=== PATIENT | female | born 1930 | race Asian ===

== ENCOUNTER 2018-07-19 02:15 | Inpatient (IN) | payer MEDICARE, OTHER ==
[~2018-07-19] VITALS: Ht 154.9 cm; Wt 40.8 kg
--- NOTE | 2018-07-19 02:30 | NUR ---
ED Nurse Note: YOSVANY ESCOBEDO C/O Occipital head injury s/p rolling out of bed at [facility]. AO3. NAD. PRESENTS WITH LACERATION AND HEMATOMA TO LEFT POSTERIOR HEAD AND RIGHT FOREARM SKIN TEAR.
[2018-07-19] MEDS ORDERED: CATAPRES0.1 MG ORAL (03:19)
[2018-07-19] MEDS ORDERED: MELATONIN3 M2 PO (03:19)
[2018-07-19] MEDS ORDERED: prostat sf (03:19)
[2018-07-19] MEDS ORDERED: robitussin dm (03:19)
[2018-07-19] MEDS ORDERED: K-TAB ER20 MEQ PO (03:19)
[2018-07-19] MEDS ORDERED: DUCOLAX RC (03:19)
[2018-07-19] MEDS ORDERED: FERROUS SULFAT325 MG ORAL (03:19)
[2018-07-19] MEDS ORDERED: MILK OF MA2400 MG/10 ORAL (03:19)
[2018-07-19] MEDS ORDERED: ALBUTEROL2.5 MG/3 M INH (03:19)
[2018-07-19] MEDS ORDERED: maalox PO (03:19)
[2018-07-19] MEDS ORDERED: NITROSTAT0.4 M1 SL (03:19)
[2018-07-19] MEDS ORDERED: TYLENOL325 MG ORAL (03:19)
[2018-07-19] MEDS ORDERED: AMBIEN5 MG ORAL (03:19)
[2018-07-19] MEDS ORDERED: NORCO 5-325 TA1 EACH ORAL (03:19)
[2018-07-19 03:30] VITALS: BP 143/109
--- NOTE | 2018-07-19 03:40 | NUR ---
ED Nurse Note:PT DOWN TO CT
--- NOTE | 2018-07-19 04:16 | NUR ---
ED Nurse Note: PT BACK FROM CT
--- NOTE | 2018-07-19 04:20 | NUR ---
ED Nurse Note: BLOOD COLLECTED; SENT DOWN TO LAB. UNABLE TO ESTABLISH IV ACCESS X4. WILL ATTEMPT AT A LATER TIME; [employer] FACILITY OPERATOR MADE AWARE.
--- NOTE | 2018-07-19 04:50 | NUR ---
ED Nurse Note: IV ACCESS ESTABLISHED.
[2018-07-19] MEDS ORDERED: Metoprolol 5mg/5ml Inj ONE (05:00)
[2018-07-19] MEDS ORDERED: Metoprolol 5mg/5ml Inj IVP ONE (05:00)
--- NOTE | 2018-07-19 05:00 | NUR ---
ED Nurse Note: MRSA VRE CRE SWABS COLLECTED; SENT DOWN TO LAB. WOUND CARE PHOTOS UPLOADED.
[2018-07-19 05:06] LABS: BASOPHILS % (AUTO) 0.8 % (0.0-2.0); EOSINOPHILS % (AUTO) 1.7 % (0.0-3.0); HEMOGLOBIN 10.7 G/DL (12.0-16.0); LYMPHOCYTES % (AUTO) 9.8 % (20.0-45.0); MEAN CORPUSCULAR VOLUME 98 FL (80-99); MONOCYTES % (AUTO) 4.4 % (1.0-10.0); NEUTROPHILS % (AUTO) 83.3 % (45.0-75.0); PLATELET COUNT 215 K/UL (150-450); RED BLOOD COUNT 3.46 M/UL (4.20-5.40); RED CELL DISTRIBUTION WIDTH 18.7 % (11.6-14.8); WHITE BLOOD COUNT 7.2 K/UL (4.8-10.8)
[2018-07-19 05:10] LABS: ANION GAP 7 mmol/L (5-15); BLOOD UREA NITROGEN 9 mg/dL (7-18); CALCIUM 8.4 MG/DL (8.5-10.1); CARBON DIOXIDE 24 MMOL/L (21-32); CHLORIDE 100 MMOL/L (98-107); CREATININE 0.7 MG/DL (0.55-1.30); POTASSIUM 4.7 MMOL/L (3.5-5.1); SODIUM 131 MMOL/L (136-145)
[2018-07-19 05:24] LABS: ALANINE AMINOTRANSFERASE 70 U/L (12-78); ALBUMIN 2.6 G/DL (3.4-5.0); ALBUMIN/GLOBULIN RATIO 0.6 (1.0-2.7); ALKALINE PHOSPHATASE 91 U/L (46-116); ASPARTATE AMINO TRANSFERASE 161 U/L (15-37); BILIRUBIN,TOTAL 0.6 MG/DL (0.2-1.0); CKMB 1.2 NG/ML (0.0-3.6); CREATINE KINASE 38 U/L (26-308)
--- NOTE | 2018-07-19 05:33 | NUR ---
ED Nurse Note: CALLED FOR REPORT. RECEIVING RN ON BREAK; WILL CALL BACK IN 15 MIN
--- NOTE | 2018-07-19 05:39 | Emergency Room Report ---
History of Present Illness General Chief Complaint: Multiple Trauma/Fall Source: Medical Record Present Illness HPI 79-year-old female presents ED for evaluation. Patient brought in from [facility] facility status post head injury. Fell from her bed tonight. Has swelling to her posterior scalp. No LOC. Per triage patient is tachycardic. Reported fevers or chills. No other aggravating or relieving factors. No other associated symptoms Allergies: Coded Allergies: No Known Allergies (Unverified , 07/19/18) Patient History Past Medical History: DM, HTN Past Surgical History: none Pertinent Family History: none Social History: Denies: smoking, alcohol use, drug use Now: No Immunizations: UTD Reviewed Nursing Documentation: PMH: Agreed; PSxH: Agreed Nursing Documentation-PMH Hx Hypertension: Yes Hx Diabetes: Yes Review of Systems All Other Systems: limited Physical Exam Vital Signs Date Time Temp Pulse Resp B/P (MAP) Pulse Ox O2 Delivery O2 Flow Rate FiO2 07/19/18 02:14 Room Air 07/19/18 02:30 126 22 07/19/18 03:30 98.7 143/109 97 General Appearance: cachetic, other - nonverbal Head: other - posterior scalp swelling. no laceration.abrasion noted Eyes: bilateral eye normal inspection, bilateral eye PERRL, bilateral eye EOMI ENT: normal ENT inspection Neck: normal inspection Respiratory: chest non-tender, lungs clear, normal breath sounds, speaking full sentences Cardiovascular #1: regular rate, rhythm, no edema Gastrointestinal: normal inspection Rectal: deferred Genitourinary: no CVA tenderness Musculoskeletal: normal inspection Neurologic: other - nonverbal Psychiatric: other - nonverbal Skin: normal inspection Lymphatic: normal inspection Medical Decision Making Diagnostic Impression: Primary Impression: Atrial fibrillation with RVR Additional Impression: Head injury Qualified Codes: S09.90XA - Unspecified injury of head, initial encounter ER Course Hospital Course 87 yo F presents to ED s/p fall with head injury Differential diagnoses include: AZ/unstable angina, arrythmia, dehydration, CVA/ TIA Clinical course Patient placed on stretcher. on playground monitor. After initial history and physical I ordered labs, EKG, chest x-ray, IVFs, CT Brain EKG - afib with RVR labs reviewed- no leukocytosis, hemoglobin/hematocrit ok, electrolytes okay, troponins negative Chest x-ray- no acute process CT brain- no intracranial injury. posterior scalp swelling/hematoma Patient cardioverted with Lopressor. IV fluids given. Case discussed with Dr. Maldonado and he agreed to accept the patient to his service for further care and support I. I feel this is a highly complex case requiring extensive working including EKG/Rhythm strip, Xray/CT/US, Blood/urine lab work, repeat exams while in ED, and administration of strong opiates/narcotics for pain control, admission to hospital or close patient follow up. Diagnosis - afib with RVR, head injury admitted to telemetry in serious condition Labs Test 07/19/18 04:00 White Blood Count 7.2 K/UL (4.8-10.8) Red Blood Count 3.46 M/UL (4.20-5.40) Hemoglobin 10.7 G/DL (12.0-16.0) Hematocrit 34.0 % (37.0-47.0) Mean Corpuscular Volume 98 FL (80-99) Mean Corpuscular Hemoglobin 31.0 PG (27.0-31.0) Mean Corpuscular Hemoglobin Concent 31.5 G/DL (32.0-36.0) Red Cell Distribution Width 18.7 % (11.6-14.8) Platelet Count 215 K/UL (150-450) Mean Platelet Volume 5.6 FL (6.5-10.1) Neutrophils (%) (Auto) 83.3 % (45.0-75.0) Lymphocytes (%) (Auto) 9.8 % (20.0-45.0) Monocytes (%) (Auto) 4.4 % (1.0-10.0) Eosinophils (%) (Auto) 1.7 % (0.0-3.0) Basophils (%) (Auto) 0.8 % (0.0-2.0) Sodium Level 131 MMOL/L (136-145) Potassium Level 4.7 MMOL/L (3.5-5.1) Chloride Level 100 MMOL/L (98-107) Carbon Dioxide Level 24 MMOL/L (21-32) Anion Gap 7 mmol/L (5-15) Blood Urea Nitrogen 9 mg/dL (7-18) Creatinine 0.7 MG/DL (0.55-1.30) Estimat Glomerular Filtration Rate mL/min (>60) Glucose Level 98 MG/DL (74-106) Calcium Level 8.4 MG/DL (8.5-10.1) Total Bilirubin 0.6 MG/DL (0.2-1.0) Aspartate Amino Transf (AST/SGOT) 161 U/L (15-37) Alanine Aminotransferase (ALT/SGPT) 70 U/L (12-78) Alkaline Phosphatase 91 U/L (46-116) Total Creatine Kinase 38 U/L (26-308) Creatine Kinase MB 1.2 NG/ML (0.0-3.6) Creatine Kinase MB Relative Index 3.1 Troponin I 0.034 ng/mL (0.000-0.056) Pro-B-Type Natriuretic Peptide 3931 pg/mL (0-125) Total Protein 7.1 G/DL (6.4-8.2) Albumin 2.6 G/DL (3.4-5.0) Globulin 4.5 g/dL Albumin/Globulin Ratio 0.6 (1.0-2.7) EKG Diagnostic Results Rate: tachycardiac Rhythm: other - afib with RVR ST Segments: no acute changes ASA given to the pt in ED: No Rhythm Strip Diag. Results EP Interpretation: yes Rhythm: no PVC's, no ectopy Chest X-Ray Diagnostic Results Chest X-Ray Diagnostic Results : Chest X-Ray Ordered: Yes # of Views/Limited/Complete: 1 View Indication: Other EP Interpretation: Yes Interpretation: no consolidation, no effusion, no pneumothorax, no acute cardiopulmonary disease Impression: No acute disease Electronically Signed by: Electronically signed by Too Maher MD CT/MRI/US Diagnostic Results CT/MRI/US Diagnostic Results : Imaging Test Ordered: CT Head Impression no intracranial injury. posterios scalp swelling/hematoma Last Vital Signs Date Time Temp Pulse Resp B/P (MAP) Pulse Ox O2 Delivery O2 Flow Rate FiO2 07/19/18 05:01 126 143/109 07/19/18 03:30 98.7 22 97 Room Air Status: improved Disposition: ADMITTED INPATIENT Condition: Serious Referrals: NON PHYSICIAN (PCP) Too Maher MD Jul 19, 2018 05:39
[2018-07-19 05:45] VITALS: BP 117/80
--- NOTE | 2018-07-19 05:53 | NUR ---
TRANSFER TO FLOOR: Patient transferred to TELEMETRY 209-2 as ordered, per MD ANNABELLA. Report given to GONZALO MUNOZ. PATIENT IN STABLE CONDITION. BELONGINGS LIST COMPLETED WITH RECEIVING RN.
--- NOTE | 2018-07-19 06:01 | NUR ---
NURSE NOTES: Received pt from ER. pt is awake and resting. loan expeditor placed on pt. pt tolerating room air. Vitals taken. Bed in lowest position, call light within reach, bed locked. Will follow up with physician.
[2018-07-19] MEDS ORDERED: Nitroglycerin Subl 0.4mg tab SL PRN (07:30)
[2018-07-19] MEDS ORDERED: Albuterol ud Inhalation HHN PRN (07:30)
[2018-07-19] MEDS ORDERED: HYDROcodone/Acetamin 5/325 tab ORAL PRN (07:30)
[2018-07-19] MEDS ORDERED: Milk of Magnesia 30ml Ud ORAL PRN (07:30)
--- NOTE | 2018-07-19 07:35 | NUR ---
HAND-OFF: Report given to GONZALO Herrera. Endorsed plan of care.
[2018-07-19 08:00] VITALS: BP 125/79
--- NOTE | 2018-07-19 08:00 | History and Physical Report ---
DATE OF ADMISSION: 07/19/2018 CHIEF COMPLAINT: Fall and atrial fibrillation with RVR. HISTORY OF PRESENT ILLNESS: This is an 87-year-old female. She has a history of an L3 compression fracture status post kyphoplasty, hypertension, gastroesophageal reflux disease, renal artery stenosis, gallstones, and anemia. She was transferred from a residential facility after she sustained a fall. On evaluation in the emergency room, she had a CAT scan of the head that was unremarkable. She was noted to have a hematoma. In the ER, she went into atrial fibrillation with RVR. She received a dose of metoprolol and she is now admitted for further evaluation and care. PAST MEDICAL HISTORY: As above. PAST SURGICAL HISTORY: Includes kyphoplasty. CURRENT MEDICATIONS: Reconciled and reviewed. ALLERGIES: None. FAMILY HISTORY: None. SOCIAL HISTORY: There is no known history of tobacco, ethanol, or drugs. REVIEW OF SYSTEMS: GENERAL: No fevers or chills. HEENT: No headaches. CARDIOPULMONARY: No chest pain or shortness of breath. GASTROINTESTINAL: No nausea or vomiting. GENITOURINARY: No urgency or frequency. MUSCULOSKELETAL: No joint pain or swelling. NEUROLOGIC: No evidence of seizures. PHYSICAL EXAMINATION: VITAL SIGNS: Temperature 98 degrees, pulse 91, respirations 19, and blood pressure 117/80. GENERAL: The patient is a well-developed female, in no apparent distress. She is awake and alert. NECK: Supple. There is a hematoma in the back of the head. HEART: Irregularly irregular. LUNGS: Clear. ABDOMEN: Soft, nontender, and nondistended. EXTREMITIES: Without clubbing, cyanosis, or edema. LABORATORY DATA: Sodium 131 and potassium 4.7. AST 161. Natriuretic peptide was 3900. White count was 7, hemoglobin 10, hematocrit 34, and platelets of 215,000. ASSESSMENT: This is a pleasant female with a history of compression fracture, hypertension, ischemic cardiomyopathy, coronary artery disease, and atherosclerotic cardiovascular disease, admitted with a fall and atrial fibrillation with RVR. PLAN: 1. Start beta-blockade. 2. Baby aspirin. We will hold on anticoagulation in light of the patient's hematoma on the back of her head. 3. Cardiology consultation will be obtained. 4. We will check an echo, troponin, and thyroid function tests. Dmitry Parker M.D. DR: RACHAEL JOB#: [id number] CC:
--- NOTE | 2018-07-19 08:22 | NUR ---
CASE MANAGEMENT:REVIEW 87 YR OLD FEMALE BIBA FROM [facility] CC: FALL WITH HEAD INJURY...LACERATION AND HEMATOMA SI: AFIB W/RVR. HEAD INJURY 98.7 126 22 97% ON RA H/H-10.7/34.0 NA-131 IS: 500CC NS BOLUS IV LOPRESSOR CHEST XRAY CT HEAD : TO TELEMETRY DCP: FROM [facility] INTERQUAL CRITERIA MET
[2018-07-19] MEDS: Metoprolol 25mg tab ORAL SCH ×2 (08:36→20:35)
[2018-07-19 12:17] VITALS: BP 125/88
--- NOTE | 2018-07-19 15:04 | NUR ---
NURSE NOTES:WOUND CARE NOTES:Pt noted to have dry, dark skin tone without erythema, induration or fluctuance Sacrum. Pt verbalized tenderness when sacral area minimally palpated..Non-blanchable erythema noted to R and L heels . Pt denied tenderness when each heel palpated. No other areas of skin concerns noted.Pt demonstrated good mobility in bed when cued . educated and encouraged pt to frequently reposition self at least hourly . instructed to off-lift buttocks while repositioning to avoid sliding against bed linens. Tx.Plan:Apply Moisture Paste to sacrum. Cover with Optifoam drsg. Change every 3 days and prn. Apply Moisture Barrier Paste to both ischial areas with each perineal care. Apply Cavilon Skin Barrier to both heels. Cover each heel with Optifoam drsg. Change every 7 days and prn. Encourage and assist pt as needed to reposition at least every 2hours or as tolerated. Off-load heels with pillow.
[2018-07-19 16:36] VITALS: BP 124/78
--- NOTE | 2018-07-19 17:46 | Diagnostic Imaging Report ---
Indications: Headache and scalp laceration after falling one day ago Technique: Spiral acquisitions obtained through the brain. Angled axial and coronal 5 x 5 mm slices were reconstructed. Total dose length product 1302.19 mGycm. CTDI vol(s) 70.38 mGy. Dose reduction achieved using automated exposure control Comparison: None. Findings: There is a large left parietal scalp contusion versus hematoma noted. No underlying calvarial fracture demonstrated. No acute intracranial hemorrhage or edema, mass effect, nor midline shift demonstrated. There is age-related enlargement of the ventricles and extra axial CSF spaces. There is fairly extensive periventricular deep white matter low-attenuation consistent with chronic microvascular ischemic change. There is suggestion of an empty sella. Normal narayanan-white differentiation. The included orbits are unremarkable. There is suggestion of degenerative changes of the right temporomandibular joint. What is probably a hearing aid is seen in the right external auditory canal. The mastoids are clear. Impression: Chronic and age-related changes, as described Left parietal scalp contusion. Negative for acute intracranial bleed or mass effect This agrees with the preliminary interpretation provided overnight by [facility] teleradiology service. The CT scanner at [facility] is accredited by the [employer] and the scans are performed using protocols designed to limit radiation exposure to as low as reasonably achievable to attain images of sufficient resolution adequate for diagnostic evaluation.
--- NOTE | 2018-07-19 17:47 | Cardiology Report ---
APPROVED REPORT EXAM: Two-dimensional and M-mode echocardiogram with Doppler and color Doppler. INDICATION Arrhythmia M-Mode DIMENSIONS IVSd1.1 (0.7-1.1cm)Left Atrium (MM)4.0 (1.6-4.0cm) LVDd3.8 (3.5-5.6cm)Aortic Root2.6 (2.0-3.7cm) PWd0.8 (0.7-1.1cm)Aortic Cusp Exc.0.9 (1.5-2.0cm) IVSs1.2 cm LVDs2.7 (2.5-4.0cm) PWs1.2 cm Normal left ventricular chamber size. Global LV Hypokinesis. Left ventricular ejection fraction estimated to be 40-45%. No evidence of left ventricular hypertrophy . No evidence of pericardial effusion. Mild left atrial enlargement. Right cardiac chamber sizes are within normal limits. Aortic valve calcification with decreased cusp excursion c/w aortic stenosis. Mildly thickened mitral valve leaflets with normal excursion. Mild mitral annulus and aortic root calcification. Pulmonic valve not well visualized. IVC at size 2.2 cm with physiologic collapse . A color flow and spectral Doppler study was performed and revealed: Mild aortic insufficiency . Peak aortic valve gradient of 17 mm Hg and a mean of 8 mmHg. Aortic valve area 1.7 cm2 calculated by continuity equation. Left ventricular diastolic function is not diagnostic due to A-FIB. Moderate mitral regurgitation. Moderate tricuspid regurgitation. Tricuspid systolic velocities suggests peak right ventricular systolic pressure of 43 mmHg,consistent with mild pulmonary HTN .
--- NOTE | 2018-07-19 17:47 | Diagnostic Imaging Report ---
Indication: Shortness of breath Technique: One view of the chest Comparison: none Findings: The heart is mildly enlarged. There are bilateral pleural effusions. There is bilateral interstitial and hazy airspace disease. There is central bronchial wall thickening Impression: Mild cardiomegaly Bilateral pleural effusions Bilateral interstitial and hazy airspace edema versus infiltrates
--- NOTE | 2018-07-19 19:28 | NUR ---
HAND-OFF: Report given to JARRET SÁNCHEZ.
--- NOTE | 2018-07-19 19:32 | NUR ---
NURSE NOTES: Received pt from GONZALO Herrera. Pt awake and resting in bed. Iv site intact. Bed in lowest position, locked, and call light within reach. Will continue with plan of care.
[2018-07-19 20:00] VITALS: BP 122/83
[2018-07-19] MEDS: Zolpidem 5mg tab ORAL PRN (20:35)
[2018-07-20] VITALS: BP 131/75
[2018-07-20 04:00] VITALS: BP 139/81
--- NOTE | 2018-07-20 04:00 | Consultation ---
DATE OF CONSULTATION: 07/19/2018 CARDIOLOGY CONSULTATION CONSULTING PHYSICIAN: James Maldonado M.D. REQUESTING PHYSICIAN: Dmitry Parker M.D. REASON FOR CONSULTATION: Atrial fibrillation. HISTORY OF PRESENT ILLNESS: This 87-year-old female who was brought into the emergency room by paramedics after head injury sustained at a [facility] facility. She apparently tripped while walking to the bathroom at night. She did not lose consciousness. She was brought into the emergency room where evaluation included a CAT scan of the brain revealing a hematoma, but no other process. She also was noted to have rapid atrial fibrillation and labile elevated blood pressure. PAST MEDICAL HISTORY: Obtained from records includes hypertension, type 2 diabetes mellitus, degenerative disk disease, osteoarthritis, and dementia. ALLERGIES: None. MEDICATIONS: Reviewed and reconciled. SOCIAL HISTORY: Negative for smoking, alcohol, or substance abuse. FAMILY HISTORY: Noncontributory. REVIEW OF SYSTEMS: Not obtainable from patient. Pertinent records from [facility] reviewed and data as outlined above. PHYSICAL EXAMINATION: VITAL SIGNS: Afebrile, blood pressure 143/109, pulse 126, respirations 22, and oxygen saturation 97% on room air. HEENT: Temporal wasting. Posterior scalp swelling. Conjunctiva pink. Sclerae are anicteric. Oropharynx clear. NECK: Supple. Jugular venous pressure normal. CARDIAC: Irregularly irregular. Normal S1, S2. No murmur. ABDOMEN: Soft, nontender. EXTREMITIES: No edema. LABORATORY AND DIAGNOSTIC DATA: White count 7.2, hemoglobin 10.7. Sodium 131, potassium 4.7, bicarb 24, BUN 9, creatinine 0.7. Troponin 0.034. Pro-natriuretic peptide 3900. Albumin 2.6. Chest x-ray reveals cardiomegaly, pleural effusion, bilateral airspace disease versus edema. IMPRESSION: 1. Mechanical fall. 2. Head trauma with hematoma, possible concussion. 3. Paroxysmal atrial fibrillation with rapid ventricular response. 4. Hypertensive urgency. 5. Acute on chronic systolic and diastolic congestive heart failure. PLAN: 1. Neuro checks. 2. No anticoagulation. 3. Beta-blockade. 4. Consider angiotensin-converting enzyme inhibitor. 5. Replace potassium plus diuresis to follow. 6. Remains high risk. James Maldonado M.D. DR: RAIZA JOB#: [id number] CC:
[2018-07-20] MEDS: Guaifenesin/DM 10ml syrup ORAL PRN ×3 (05:50→21:04)
--- NOTE | 2018-07-20 07:22 | NUR ---
HAND-OFF: Report given to GONZALO spence. Endorsed plan of care.
[2018-07-20 08:00] VITALS: BP 117/70
[2018-07-20] MEDS ORDERED: Metoprolol 25mg tab ORAL SCH (09:00)
--- NOTE | 2018-07-20 11:21 | General Progress Note ---
Assessment/Plan Problem List: (1) Head injury ICD Codes: S09.90XA - Unspecified injury of head, initial encounter SNOMED: 00187704 Qualifiers: Qualified Codes: S09.90XA - Unspecified injury of head, initial encounter (2) Atrial fibrillation with RVR ICD Codes: I48.91 - Unspecified atrial fibrillation SNOMED: 450060646038581 Status: stable Assessment/Plan: tele monitor HR neuro checks consider repeat head ct Subjective ROS Limited/Unobtainable: No Constitutional: Reports: no symptoms HEENT: Reports: no symptoms Cardiovascular: Reports: no symptoms Respiratory: Reports: no symptoms Genitourinary: Reports: no symptoms Neurologic/Psychiatric: Reports: no symptoms Endocrine: Reports: no symptoms Hematologic/Lymphatic: Reports: no symptoms Allergies: Coded Allergies: No Known Allergies (Unverified , 07/19/18) All Systems: reviewed and negative except above Subjective no complaints. no rapid afib. no fevers or chills. no sob Objective Last 24 Hour Vital Signs Date Time Temp Pulse Resp B/P (MAP) Pulse Ox O2 Delivery O2 Flow Rate FiO2 07/20/18 09:00 Room Air 07/20/18 08:24 91 117/70 07/20/18 08:00 98.0 91 18 117/70 (86) 98 07/20/18 07:48 97 07/20/18 04:00 91 07/20/18 04:00 98.0 91 18 139/81 (100) 98 07/20/18 00:00 97.9 95 18 131/75 (93) 97 07/20/18 00:00 95 07/19/18 21:00 Room Air 07/19/18 20:35 130 117/78 07/19/18 20:00 97.7 114 18 122/83 (96) 95 07/19/18 20:00 114 07/19/18 16:36 98.9 105 20 124/78 (93) 97 07/19/18 16:00 102 07/19/18 12:17 98.1 98 20 125/88 (100) 95 07/19/18 12:00 89 07/19/18 11:35 Room Air Intake and Output 07/19/18 07/20/18 19:00 07:00 Intake Total 240 ml Balance 240 ml Intake Oral 240 ml # Voids 2 Height (Feet): 5 Height (Inches): 1.00 Weight (Pounds): 90 General Appearance: WD/WN, alert Cardiovascular: normal rate, regular rhythm Respiratory/Chest: chest wall non-tender, lungs clear, normal breath sounds Abdomen: normal bowel sounds, non tender, soft, no organomegaly Edema: no edema noted Arm (L), no edema noted Arm (R), no edema noted Leg (L), no edema noted Leg (R), no edema noted Pedal (L), no edema noted Pedal (R), no edema noted Generalized Neurologic: alert Dmitry Parker MD Jul 20, 2018 11:21
[2018-07-20 11:43] VITALS: BP 109/72
--- NOTE | 2018-07-20 11:54 | NUR ---
NURSE NOTES: pt awake alert, no distress. no sob. call light within reach. bed in lowest position, locked.
[2018-07-20 16:00] VITALS: BP 107/58
--- NOTE | 2018-07-20 19:27 | NUR ---
HAND-OFF: Report given to BRIGIDA SÁNCHEZ.
--- NOTE | 2018-07-20 19:28 | NUR ---
NURSE NOTES: Got report from Flex SÁNCHEZ. Pt in stable condition. Denies any pain. No s/s of distress or discomfort noted. Pt resting in bed comfortably. Bed in low and locked position, call light within reach, bedside table within reach. Continue to monitor.
[2018-07-20 20:00] VITALS: BP 117/65
[2018-07-20] MEDS: Metoprolol Tartrate 50mg tab ORAL SCH (20:54)
[2018-07-20] MEDS: Zolpidem 5mg tab ORAL PRN (20:58)
[2018-07-21 00:33] VITALS: BP 117/60
[2018-07-21 04:20] VITALS: BP 119/61
--- NOTE | 2018-07-21 07:00 | NUR ---
HAND-OFF: Report given to Flex SÁNCHEZ. Endorsed plan of care.
[2018-07-21 07:29] LABS: BASOPHILS % (AUTO) 0.3 % (0.0-2.0); EOSINOPHILS % (AUTO) 2.7 % (0.0-3.0); HEMATOCRIT 27.9 % (37.0-47.0); LYMPHOCYTES % (AUTO) 40.3 % (20.0-45.0); MEAN CORPUSCULAR VOLUME 97 FL (80-99); MONOCYTES % (AUTO) 11.5 % (1.0-10.0); NEUTROPHILS % (AUTO) 45.1 % (45.0-75.0); PLATELET COUNT 186 K/UL (150-450); RED BLOOD COUNT 2.87 M/UL (4.20-5.40); RED CELL DISTRIBUTION WIDTH 18.9 % (11.6-14.8); WHITE BLOOD COUNT 6.3 K/UL (4.8-10.8)
[2018-07-21 07:34] LABS: ALANINE AMINOTRANSFERASE 140 U/L (12-78); ALBUMIN 1.7 G/DL (3.4-5.0); ALBUMIN/GLOBULIN RATIO 0.5 (1.0-2.7); ALKALINE PHOSPHATASE 67 U/L (46-116); ANION GAP 9 mmol/L (5-15); ASPARTATE AMINO TRANSFERASE 176 U/L (15-37); BILIRUBIN,TOTAL 0.5 MG/DL (0.2-1.0); BLOOD UREA NITROGEN 11 mg/dL (7-18); CALCIUM 7.4 MG/DL (8.5-10.1); CARBON DIOXIDE 20 MMOL/L (21-32); CHLORIDE 104 MMOL/L (98-107); CREATININE 0.9 MG/DL (0.55-1.30); POTASSIUM 4.4 MMOL/L (3.5-5.1); SODIUM 133 MMOL/L (136-145)
[2018-07-21 07:35] LABS: ALANINE AMINOTRANSFERASE 140 U/L (12-78); ALBUMIN 1.6 G/DL (3.4-5.0); ALKALINE PHOSPHATASE 66 U/L (46-116); ANION GAP 8 mmol/L (5-15); ASPARTATE AMINO TRANSFERASE 175 U/L (15-37); BILIRUBIN,DIRECT 0.2 MG/DL (0.0-0.3); BILIRUBIN,TOTAL 0.5 MG/DL (0.2-1.0); BLOOD UREA NITROGEN 12 mg/dL (7-18); CALCIUM 7.4 MG/DL (8.5-10.1); CARBON DIOXIDE 22 MMOL/L (21-32); CHLORIDE 104 MMOL/L (98-107); CREATININE 0.9 MG/DL (0.55-1.30); POTASSIUM 4.4 MMOL/L (3.5-5.1); SODIUM 133 MMOL/L (136-145)
[2018-07-21 08:00] VITALS: BP 116/70
[2018-07-21] MEDS: Metoprolol Tartrate 50mg tab ORAL SCH ×2 (08:30→20:31)
--- NOTE | 2018-07-21 08:44 | NUR ---
NURSE NOTES: pt awake alert, no distress. no sob. call light within reach. bed in lowest position, locked
--- NOTE | 2018-07-21 10:31 | General Progress Note ---
Assessment/Plan Problem List: (1) Head injury ICD Codes: S09.90XA - Unspecified injury of head, initial encounter SNOMED: [id number] Qualifiers: Qualified Codes: S09.90XA - Unspecified injury of head, initial encounter (2) Atrial fibrillation with RVR ICD Codes: I48.91 - Unspecified atrial fibrillation SNOMED: 172385980465053 (3) Hepatitis ICD Codes: K75.9 - Inflammatory liver disease, unspecified SNOMED: [id number] Status: stable Assessment/Plan: tele monitor HR neuro checks consider repeat head ct check liver us and hep panel Subjective ROS Limited/Unobtainable: No Constitutional: Reports: malaise, weakness HEENT: Reports: no symptoms Cardiovascular: Reports: no symptoms Respiratory: Reports: no symptoms Gastrointestinal/Abdominal: Reports: no symptoms Genitourinary: Reports: no symptoms Neurologic/Psychiatric: Reports: no symptoms Endocrine: Reports: no symptoms Hematologic/Lymphatic: Reports: anemia Allergies: Coded Allergies: No Known Allergies (Unverified , 07/19/18) All Systems: reviewed and negative except above Subjective no complaints. no rapid afib. no fevers or chills. no sob. elevated lFTs. no pain Objective Last 24 Hour Vital Signs Date Time Temp Pulse Resp B/P (MAP) Pulse Ox O2 Delivery O2 Flow Rate FiO2 07/21/18 09:00 Room Air 07/21/18 08:30 83 116/70 07/21/18 08:19 78 18 96 Room Air 21 07/21/18 08:00 97.7 83 18 116/70 (85) 95 07/21/18 07:57 81 07/21/18 04:20 77 07/21/18 04:20 97.7 83 18 119/61 (80) 95 07/21/18 00:33 97.3 77 18 117/60 (79) 95 07/21/18 00:00 71 07/20/18 21:00 Room Air 07/20/18 20:54 89 117/65 07/20/18 20:00 75 07/20/18 20:00 97.0 89 18 117/65 (82) 97 07/20/18 16:00 98.0 90 18 107/58 (74) 98 07/20/18 15:25 77 07/20/18 11:48 78 07/20/18 11:43 98.0 91 18 109/72 (84) 98 Intake and Output 07/20/18 07/21/18 19:00 07:00 Intake Total 480 ml Balance 480 ml Intake Oral 480 ml # Voids 3 3 Laboratory Tests 07/21/18 05:56: White Blood Count 6.3, Red Blood Count 2.87L, Hemoglobin 9.0L, Hematocrit 27.9L , Mean Corpuscular Volume 97, Mean Corpuscular Hemoglobin 31.4H, Mean Corpuscular Hemoglobin Concent 32.3, Red Cell Distribution Width 18.9H, Platelet Count 186, Mean Platelet Volume 6.9, Neutrophils (%) (Auto) 45.1, Lymphocytes (%) (Auto) 40.3, Monocytes (%) (Auto) 11.5H, Eosinophils (%) (Auto) 2.7, Basophils (%) (Auto) 0.3, Sodium Level 133L, Potassium Level 4.4, Chloride Level 104, Carbon Dioxide Level 22, Anion Gap 8, Blood Urea Nitrogen 12, Creatinine 0.9, Estimat Glomerular Filtration Rate , Glucose Level 74, Calcium Level 7.4L, Magnesium Level 1.8, Total Bilirubin 0.5, Direct Bilirubin 0.2, Aspartate Amino Transf (AST/SGOT) 175H, Alanine Aminotransferase (ALT/SGPT) 140H , Alkaline Phosphatase 66, Total Protein 5.4L, Albumin 1.6L, Globulin 3.7, Albumin/Globulin Ratio 0.5L Height (Feet): 5 Height (Inches): 1.00 Weight (Pounds): 90 General Appearance: WD/WN, alert Neck: supple Cardiovascular: normal rate, regular rhythm Respiratory/Chest: chest wall non-tender, lungs clear, normal breath sounds Abdomen: normal bowel sounds, non tender, soft, no organomegaly Edema: no edema noted Arm (L), no edema noted Arm (R), no edema noted Leg (L), no edema noted Leg (R), no edema noted Pedal (L), no edema noted Pedal (R), no edema noted Generalized Neurologic: contracting manager II-XII grossly normal, alert, responsive Dmitry Parker MD Jul 21, 2018 10:31
--- NOTE | 2018-07-21 10:51 | NUR ---
RD ASSESSMENT & RECOMMENDATIONS SEE CARE ACTIVITY FOR COMPLETE ASSESSMENT DAILY ESTIMATED NEEDS: Needs based on Underweight, wound/ 41.8kg 30-35 kcals/kg 1254- 1470 total kcals 1.25-1.5 g protein/kg 52-63 g total protein mL/kg total fluid mLs NUTRITION DIAGNOSIS: * Increased kcal/prot needs R/T underweight status, wound healing as evidenced by Pt @ 88% IBW w/ BMI of 17.4, admitted w/ non-blanchable redness @ BL heels. * Altered nutrition related lab values R/T liver dysfunction as evidenced by elev LFTs (JCO=887, BBL=726) CURRENT DIET:CARDIAC -> NPO for test PO DIET RECOMMENDATIONS: Liberalized REGULAR diet w/ poor PO + Glucerna TID w/ meals ADDITIONAL RECOMMENDATIONS: * Per SNF: wt on 07/18/18=92lbs * Weekly wt monitoring given underweight status * W/ PO intake consistently >70%, rec LOW NA, CCHO MED diet * Wound healing: add MVI x1, Vit C 250mg QD, David 1pkt BID * Glucerna TID w/meals * Monitor BGs closely, need for hypoglycemics- h/o DM
[2018-07-21 12:00] VITALS: BP 118/70
[2018-07-21 15:58] VITALS: BP 116/70
--- NOTE | 2018-07-21 19:12 | NUR ---
HAND-OFF: Report given to BRIGDIA SÁNCHEZ.
[2018-07-21 20:00] VITALS: BP 121/62
[2018-07-21] MEDS: Guaifenesin/DM 10ml syrup ORAL PRN (20:30)
[2018-07-21] MEDS: Zolpidem 5mg tab ORAL PRN (20:30)
--- NOTE | 2018-07-21 22:30 | Progress Note ---
CARDIOLOGY PROGRESS NOTE DATE: 07/21/2018 SUBJECTIVE: The patient still has nausea, poor oral intake and slight headache. She sustained a mechanical fall with head trauma several days ago. OBJECTIVE: VITAL SIGNS: Blood pressure 116/70, pulse 80, respirations 18. Afebrile. Room air oxygen saturation 97%. HEENT: Hematoma in the occiput. Oropharynx clear. LUNGS: Clear. CARDIAC: Irregularly irregular rhythm. Normal S1, S2. ABDOMEN: Soft. No focal tenderness. EXTREMITIES: No edema. LABORATORY DATA: Notable for sodium 133, potassium 4.4, BUN 12, and creatinine 0.9. AST and ALT 175/140, alkaline phosphatase of 66. Albumin 1.6. White count 6.3, hemoglobin 9. IMPRESSION: 1. Mechanical fall and head trauma with possible concussion and hematoma. 2. Transaminitis, nausea and anorexia, rule out hepatobiliary process. 3. Acute on chronic systolic and diastolic congestive heart failure. 4. Hyponatremia, improved. 5. Paroxysmal atrial fibrillation. PLAN: 1. Continue beta loki. 2. No anticoagulation presently planned. 3. Check abdominal ultrasound. 4. Maintenance hydration by IV route. James Maldonado M.D. DR: LIO JOB#: [id number] CC:
--- NOTE | 2018-07-21 22:45 | Progress Note ---
DATE: 07/20/2018 CARDIOLOGY PROGRESS NOTE SUBJECTIVE: The patient was seen and evaluated, and case discussed with her daughter at bedside. The patient apparently has a very poor appetite. She has also been eating poorly for the past few days prior to admission here. Her daughter is concerned about dehydration. Part of the problem is also that she does not have her dentures here to chew. OBJECTIVE: VITAL SIGNS: Blood pressure 117/70, pulse 91, respirations 18, afebrile. HEENT: Temporal wasting. Oropharynx clear. Mucous membranes dry. NECK: Supple. LUNGS: Clear. CARDIAC: Irregularly irregular. Normal S1, S2. A 1/6 systolic murmur at apex. ABDOMEN: Soft. EXTREMITIES: No edema. LABORATORY DATA: No new labs today. IMPRESSION: 1. Head trauma. 2. Atrial fibrillation. 3. Postconcussion syndrome. 4. Hypertensive urgency, resolved. 5. Acute on chronic diastolic and systolic congestive heart failure, mostly clinically compensated. 6. Hypokalemia. PLAN: 1. Recheck labs. 2. Continue cardiac monitoring. 3. Titrate beta-loki. 4. No current plans to anticoagulate. 5. Titrate antihypertensive regimen based on clinical parameters. 6. Consider repeat imaging studies of the brain as well. 7. The patient is at high risk for subdural hematoma. James Maldonado M.D. DR: DELON JOB#: [id number] CC:
[2018-07-22 00:21] VITALS: BP 121/62
[2018-07-22 04:17] VITALS: BP 114/61
--- NOTE | 2018-07-22 07:00 | NUR ---
HAND-OFF: Report given to Kusum SÁNCHEZ. Endorsed plan of care.
--- NOTE | 2018-07-22 07:33 | NUR ---
NURSE NOTES: Received report from GONZALO Mallory. Pt is lying comfortably in semi-fowlers. No signs of distress noted. A+Ox2, denies pain/SOB. IV site is patent and intact. Respirations are even and unlabored on room air. Bed is at lowest position, brakes engaged, siderails x2, bed alarm on, and call light within reach. Pt is in stable condition at this time; will continue to monitor.
[2018-07-22 08:00] VITALS: BP 122/58
--- NOTE | 2018-07-22 08:12 | General Progress Note ---
Assessment/Plan Problem List: (1) Head injury ICD Codes: S09.90XA - Unspecified injury of head, initial encounter SNOMED: 75081067 Qualifiers: Qualified Codes: S09.90XA - Unspecified injury of head, initial encounter (2) Atrial fibrillation with RVR ICD Codes: I48.91 - Unspecified atrial fibrillation SNOMED: 281515773118163 (3) Hepatitis ICD Codes: K75.9 - Inflammatory liver disease, unspecified SNOMED: 469362178 Status: stable Assessment/Plan: repeat head ct follow up hep serologies family refusee abd us monitor lfts at [facility] dc planning if head ct neg Subjective ROS Limited/Unobtainable: No Constitutional: Reports: malaise, weakness HEENT: Reports: no symptoms Cardiovascular: Reports: no symptoms Respiratory: Reports: no symptoms Gastrointestinal/Abdominal: Reports: no symptoms Genitourinary: Reports: no symptoms Neurologic/Psychiatric: Reports: no symptoms Endocrine: Reports: no symptoms Hematologic/Lymphatic: Reports: no symptoms Allergies: Coded Allergies: No Known Allergies (Unverified , 07/19/18) All Systems: reviewed and negative except above Subjective no complaints. no rapid afib. no fevers or chills. no sob. elevated lFTs. no pain family refusing abd us. Objective Last 24 Hour Vital Signs Date Time Temp Pulse Resp B/P (MAP) Pulse Ox O2 Delivery O2 Flow Rate FiO2 07/22/18 07:39 91 16 96 Room Air 21 07/22/18 04:17 97.2 67 16 114/61 (78) 96 07/22/18 00:21 98.0 78 18 121/62 (81) 98 07/21/18 21:00 Room Air 07/21/18 20:31 98 121/62 07/21/18 20:30 95 18 97 Room Air 21 07/21/18 20:00 98.0 78 18 121/62 (81) 98 07/21/18 15:58 97.7 80 18 116/70 (85) 95 07/21/18 12:00 97.7 83 18 118/70 (86) 95 07/21/18 11:55 79 07/21/18 09:00 Room Air 07/21/18 08:30 83 116/70 07/21/18 08:19 78 18 96 Room Air 21 Intake and Output 07/21/18 07/22/18 18:59 06:59 Intake Total 1140 ml Balance 1140 ml Intake Oral 240 ml IV Total 900 ml # Voids 4 4 Height (Feet): 5 Height (Inches): 1.00 Weight (Pounds): 90 General Appearance: WD/WN, alert Neck: supple Cardiovascular: normal rate Respiratory/Chest: chest wall non-tender, lungs clear, normal breath sounds Abdomen: normal bowel sounds, non tender, soft, no organomegaly Edema: no edema noted Arm (L), no edema noted Arm (R), no edema noted Leg (L), no edema noted Leg (R), no edema noted Pedal (L), no edema noted Pedal (R), no edema noted Generalized Neurologic: senior account representative II-XII grossly normal, alert, responsive Dmitry Parker MD Jul 22, 2018 08:12
[2018-07-22] MEDS: Metoprolol Tartrate 50mg tab ORAL SCH (08:47)
[2018-07-22 09:20] LABS: ALANINE AMINOTRANSFERASE 90 U/L (12-78); ALBUMIN 1.4 G/DL (3.4-5.0); ALBUMIN/GLOBULIN RATIO 0.3 (1.0-2.7); ALKALINE PHOSPHATASE 61 U/L (46-116); ANION GAP 11 mmol/L (5-15); ASPARTATE AMINO TRANSFERASE 75 U/L (15-37); BILIRUBIN,TOTAL 0.6 MG/DL (0.2-1.0); BLOOD UREA NITROGEN 12 mg/dL (7-18); CALCIUM 7.2 MG/DL (8.5-10.1); CARBON DIOXIDE 16 MMOL/L (21-32); CHLORIDE 103 MMOL/L (98-107); CREATININE 0.8 MG/DL (0.55-1.30); POTASSIUM 4.9 MMOL/L (3.5-5.1); SODIUM 129 MMOL/L (136-145)
--- NOTE | 2018-07-22 09:56 | NUR ---
NURSE NOTES: Spoke with patient's daughter who said she refused all examinations. She said "my mother is already dying and she doesn't need any more test." Dr. Keith hicks.
--- NOTE | 2018-07-22 10:25 | NUR ---
NURSE NOTES: Made Dr. Parker aware of patient's daughter refusing monitor and any testing. Per Dr. Parker, document patient's refusal and discharge patient back to SNF.
--- NOTE | 2018-07-22 11:32 | NUR ---
DISCHARGE PLAN DISCHARGE ORDER NOTED PATIENT WILL RETURN TO [facility] ROOM 1A SKILLED T: [phone] FOR NURSE TO NURSE REPORT [facility] HAS BEEN ARRANGED FOR [address] [employer] SPOKE WITH DAUGHTER CHRYSTAL AND SHE IS IN AGREEMENT WITH DISCHARGE PLAN
[2018-07-22 12:00] VITALS: BP 116/60
--- NOTE | 2018-07-22 12:51 | NUR ---
NURSE NOTES: Report given to nurse Freire at [facility].
--- NOTE | 2018-07-22 13:34 | NUR ---
NURSE NOTES: Patient discharge packet printed and sent with patient to SNF. Patient's daughter signed belongings list and took patient's clothes home with her. Wristband and IV removed. Pt is in stable condition. Report given to [facility] and patient discharged safely from floor via gurney with [facility].
--- NOTE | 2018-07-23 03:31 | Progress Note ---
DATE: 07/22/2018 CARDIOLOGY PROGRESS NOTE SUBJECTIVE: Still with nausea. The patient refused abdominal ultrasound. Headache is better. OBJECTIVE: VITAL SIGNS: Blood pressure 122/58, pulse 74, and respirations 18. LUNGS: Clear. CARDIAC: Irregularly irregular rhythm. ABDOMEN: Soft. EXTREMITIES: No edema. Occipital hematoma unchanged. IMPRESSION: 1. Mechanical fall. 2. Head trauma. 3. Concussion. 4. Hyponatremia. 5. Metabolic acidosis . 6. Improving transaminitis. 7. Severe protein-calorie malnutrition. 8. Paroxysmal atrial fibrillation. PLAN: 1. No anticoagulation. 2. Encourage oral intake. 3. Outpatient monitoring of hepatic function and chemistry panel. 4. No sodium restriction necessary. 5. We will follow up status at shelter facility. James Maldonado M.D. DR: DAVID JOB#: [id number] CC:
--- NOTE | 2018-07-23 11:02 | Diagnostic Imaging Report ---
APPROVED REPORT CPT Code: 58133 Present Symptoms Comments: BILATERAL LEGS PAIN. BILATERAL: Imaging reveals a patent deep venous system bilaterally. There is no evidence of thrombus within the femoral, popliteal or tibial segments. The greater saphenous veins are also within normal limits. Doppler indicates normal spontaneous flow within these segments.
--- NOTE | 2018-07-23 12:18 | Discharge Summary ---
Discharge Summary Discharge Summary _ DATE OF ADMISSION: 07/19/2018 DATE OF DISCHARGE: 07/22/2018 DISCHARGED BY: Dr. Parker REASON FOR ADMISSION: 87 years old female with past medical history of diabetes mellitus, hypertension , was [facility] status post head injury. Patient apparently fell from her bed . She had swelling to her posterior scalp . No loss of consciousness, no blackout. Vital signs revealed tachycardia with heart rate of 126. Blood pressure was elevated 143/109. No fevers, no chills. Laboratory work-up revealed no leukocytosis, hemoglobin 10.7, hematocrit 34. Sodium 131. Stable renal parameters. Glucose 98. AST 161 , ALT 70.. Troponin - 0.034. Pro-BNP 3931. EKG revealed atrial fibrillation with rapid ventricular response, no acute ischemic changes. Albumin 2.6. Chest x-ray revealed no acute cardiopulmonary pathology. CT of the head demonstrated left parietal scalp contusion , but was negative for acute intracranial bleeding or mass-effect. Chronic and age-related changes noted. Patient started on the IV fluids. Patient received IV Lopressor with cardioversion. Patient subsequently was admitted to telemetry floor for further management. CONSULTANTS: freight solicitor Dr. Maldonado [facility] H[facility]PITAL COURSE: Patient admitted to telemetry floor. Treatment was closely monitored. Neuro-checks were done every 4 hours. Patient continued with beta blockage. Heart rate was controlled. Telemetry showed again atrial fibrillation but with controlled ventricular rate. [employer] closely followed. No anticoagulation presently was planned due to high risk for falls and advanced age , as per freight solicitor. Blood pressure was closely monitored. Antihypertensive further titrated based on clinical parameters. Echocardiogram revealed ejection fraction of 40 to 45% with global left ventricular hypokinesis. No evidence of left ventricular hypertrophy. Right ventricular systolic pressure of 43 consistent with mild pulmonary hypertension. Supplemental oxygen provided as needed to keep pulse oximetry above 92%. Nebulizing treatment with bronchodilator was provided as needed. Pulse oximetry was stable on room air. Venous duplex bilateral lower extremity revealed no evidence of acute DVT. Electrolytes and renal parameters were closely monitored, electrolytes corrected as needed and nephrotoxins were avoided. AST trending down from initial 161 down to 75. ALT -90. Hepatitis panel was negative. Oral intake was encouraged. Protein supplements implemented in diet as per per diem registered nurse recommendation. Outpatient monitoring of chemistry and hepatic function will be continued will be continued. Patient clinically stabilized and was ready for transfer back to prison [facility] for continuation of care. FINAL DIAGNOSES: Status post mechanical fall with head trauma Postconcussion syndrome Hypertensive urgency -resolved Transaminitis-trending down Acute on chronic systolic and diastolic congestive heart failure Hyponatremia -improved Paroxysmal atrial fibrillation Hypokalemia Severe protein calorie malnutrition DISCHARGE MEDICATIONS: See Medication Reconciliation list. DISCHARGE INSTRUCTIONS: Patient was discharged to the prison facility. Follow up with medical doctor at the facility. I have been assigned to dictate discharge summary for this account. I was not involved in the patient's management. Carmen Benavidez NP Jul 23, 2018 12:18
== END 2018-07-22 13:30 | DRG 913 ==
LOC: EDBD 02:15 → EMR 02:29 → 2E 04:28 → EDBEDREQ 05:03
DX: S09.90XA Unspecified injury of head, initial encounter (principal); E43 Unspecified severe protein-calorie malnutrition; I50.43 Acute on chronic combined systolic (congestive) and diastolic (congestive) heart failure; E87.1 Hypo-osmolality and hyponatremia; Z68.1 Body mass index [BMI] 19.9 or less, adult; S00.03XA Contusion of scalp, initial encounter; I11.0 Hypertensive heart disease with heart failure; F07.81 Postconcussional syndrome; I16.0 Hypertensive urgency; R74.0 Nonspecific elevation of levels of transaminase and lactic acid dehydrogenase [LDH]; I48.0 Paroxysmal atrial fibrillation; E87.6 Hypokalemia; W06.XXXA Fall from bed, initial encounter; Y92.003 Bedroom of unspecified non-institutional (private) residence as the place of occurrence of the external cause; K21.9 Gastro-esophageal reflux disease without esophagitis; I25.5 Ischemic cardiomyopathy; I25.10 Atherosclerotic heart disease of native coronary artery without angina pectoris; E11.9 Type 2 diabetes mellitus without complications; M19.90 Unspecified osteoarthritis, unspecified site; F03.90 Unspecified dementia, unspecified severity, without behavioral disturbance, psychotic disturbance, mood disturbance, and anxiety; K75.9 Inflammatory liver disease, unspecified
CPT/HCPCS: 36415; 70450; 71045; 80048; 80053; 80076; 82550; 82553; 83735; 83880; 84484; 85025; 86803; 87081; 87340; 87517; 93005; 93306; 93970; 94664; 96374; 99285; J2405; J8499